=== PATIENT | female | born 1960 | race Hispanic/Latino ===

== ENCOUNTER 2020-10-29 09:12 | Outpatient (CLI) | payer MEDICARE, MEDICAID | END 2020-10-29 09:13 | disposition home or self-care (01) | LOC: CSHMRI 09:12 | PROVIDERS: ATTEND Family Medicine | DX: R51.9 Headache, unspecified (principal); R42 Dizziness and giddiness; R53.1 Weakness | CPT/HCPCS: 70553 ==